=== PATIENT | male | born 1955 | race Caucasian/White ===

== ENCOUNTER 2016-08-29 23:21 | Emergency (ER) | payer MEDICARE, MEDICAID ==
[2016-08-29] MEDS ORDERED: HUMALOG PEN 100 U/ML SC ONE ×2 (23:45→23:47)
[2016-08-29 23:54] LABS: BASOPHILS % (AUTO) 1 % (0-3); EOSINOPHILS % (AUTO) 5 % (0-9); HEMATOCRIT 40 % (39-53); MEAN CORPUSCULAR HGB CONC 34.3 gm/dl (32.0-36.0); MONOCYTES % (AUTO) 6.5 % (0-12); NEUTROPHILS % (AUTO) 70.3 % (37-80)
[2016-08-29 23:57] LABS: APPEARANCE,URINE Clear; BILIRUBIN,URINE NEGATIVE (NEGATIVE); COLOR,URINE Light yellow; GLUCOSE, URINE (UA) 2+ (NEGATIVE); KETONES,URINE TRACE (NEGATIVE); LEUKOCYTE ESTERASE ,URINE NEGATIVE (NEGATIVE); MEAN CORPUSCULAR VOLUME 80 fL (80-100); NITRATE,URINE NEGATIVE (NEGATIVE); OCCULT BLOOD,URINE NEGATIVE (NEG-TRACE); UROBILINOGEN,URINE 0.2 (0.2-1.0 EU)
[2016-08-30 00:01] LABS: RBC,URINE 0-2 (0-3AV/HPF); WBC,URINE 0-2 (0-5AV/HPF)
[2016-08-30 00:06] VITALS: TEMP 98.1
[2016-08-30 00:08] LABS: CALCIUM 8.4 mg/dl (8.5-10.1); POTASSIUM 5.1 mMol/L (3.5-5.1)
[2016-08-30 00:33] VITALS: BP 114/46; PULSE 63; RESP 14; O2SAT 95
== END 2016-08-30 01:04 | disposition home or self-care (01) | DRG 639 ==
LOC: ED 23:21
DX: E11.65 Type 2 diabetes mellitus with hyperglycemia (principal); Z79.4 Long term (current) use of insulin
CPT/HCPCS: 36415; 80048; 81001; 82962; 85025; 99285; J1815

== ENCOUNTER 2016-10-21 11:07 | Emergency (ER) | payer MEDICARE, MEDICAID ==
[2016-10-21 11:22] VITALS: TEMP 97.1; O2SAT 100
[2016-10-21 11:59] LABS: BASOPHILS % (AUTO) 1 % (0-3); EOSINOPHILS % (AUTO) 2 % (0-9); HEMATOCRIT 39 % (39-53); MEAN CORPUSCULAR HGB CONC 36.5 gm/dl (32.0-36.0); MONOCYTES % (AUTO) 4.9 % (0-12); NEUTROPHILS % (AUTO) 80.6 % (37-80)
[2016-10-21 12:07] LABS: MEAN CORPUSCULAR VOLUME 80 fL (80-100)
[2016-10-21 12:08] LABS: CALCIUM 8.2 mg/dl (8.5-10.1); POTASSIUM 5.1 mMol/L (3.5-5.1)
[2016-10-21 12:09] LABS: APPEARANCE,URINE Clear; BILIRUBIN,URINE NEGATIVE (NEGATIVE); COLOR,URINE Yellow; GLUCOSE, URINE (UA) 2+ (NEGATIVE); KETONES,URINE NEGATIVE (NEGATIVE); LEUKOCYTE ESTERASE ,URINE NEGATIVE (NEGATIVE); NITRATE,URINE NEGATIVE (NEGATIVE); OCCULT BLOOD,URINE NEGATIVE (NEG-TRACE); UROBILINOGEN,URINE 0.2 (0.2-1.0 EU)
[2016-10-21] MEDS ORDERED: [UNRECOGNIZED DRUG - OTHER] MT ONE ×2 (12:10)
[2016-10-21 12:18] LABS: RBC,URINE NEG (0-3AV/HPF); WBC,URINE 0-1 (0-5AV/HPF)
[2016-10-21 12:30] VITALS: BP 137/66; PULSE 74; RESP 18
== END 2016-10-21 13:38 | disposition home or self-care (01) | DRG 153 ==
LOC: ED 11:07
DX: J02.9 Acute pharyngitis, unspecified (principal); B37.0 Candidal stomatitis; N39.43 Post-void dribbling
CPT/HCPCS: 36415; 80048; 81001; 85025; 87430; 99283

== ENCOUNTER 2017-02-21 21:50 | Emergency (ER) | payer MEDICARE, MEDICAID ==
[2017-02-21 22:03] VITALS: RESP 16; TEMP 98.7
[2017-02-21 22:28] VITALS: BP 142/59; PULSE 69; O2SAT 99
== END 2017-02-21 23:18 | disposition home or self-care (01) | DRG 639 ==
LOC: ED 21:50
DX: E10.8 Type 1 diabetes mellitus with unspecified complications (principal); Z79.4 Long term (current) use of insulin
CPT/HCPCS: 82962; 99282

== ENCOUNTER 2017-09-04 20:39 | Emergency (ER) | payer MEDICARE, MEDICAID ==
[2017-09-04 20:51] VITALS: RESP 20; TEMP 96.9
[2017-09-04 21:22] VITALS: BP 149/59; PULSE 59; O2SAT 98
== END 2017-09-04 21:26 | disposition home or self-care (01) | DRG 125 ==
LOC: ED 20:39
DX: H50.10 Unspecified exotropia (principal); E10.8 Type 1 diabetes mellitus with unspecified complications; F20.0 Paranoid schizophrenia; Z79.4 Long term (current) use of insulin
CPT/HCPCS: 99282

== ENCOUNTER 2018-02-25 18:51 | Emergency (ER) | payer MEDICARE, MEDICAID ==
[2018-02-25 19:51] VITALS: BP 166/71; PULSE 72; RESP 16; TEMP 96.6; O2SAT 100
[2018-02-25] MEDS ORDERED: MAGNESIUM CITRATE SOL PO PRN (19:54)
[2018-02-25] MEDS ORDERED: MAGNESIUM CITRATE SOL ONE (19:57)
== END 2018-02-25 20:29 | disposition home or self-care (01) | DRG 392 ==
LOC: ED 18:51
DX: K59.00 Constipation, unspecified (principal)
CPT/HCPCS: 99282; A9270-GY

== ENCOUNTER 2018-04-14 09:17 | Emergency (ER) | payer MEDICARE, MEDICAID ==
[2018-04-14] MEDS ORDERED: LIDOCAINE 2% W/ EPI MPF 20 ML SOL INFIL ONE (09:45)
[2018-04-14] MEDS ORDERED: LIDOCAINE 2% W/ EPI MPF 20 ML SOL ONE (09:48)
[2018-04-14 10:03] LABS: BASOPHILS % (AUTO) 1 % (0-3); EOSINOPHILS % (AUTO) 4 % (0-9); HEMATOCRIT 42 % (39-53); HEMOGLOBIN 13.5 gm/dl (13.5-17.7); LYMPHOCYTES % (AUTO) 8.7 % (10-50); MEAN CORPUSCULAR HEMOGLOBIN 26.7 pg (27.0-32.0); MEAN CORPUSCULAR HGB CONC 32.3 gm/dl (32.0-36.0); MEAN CORPUSCULAR VOLUME 83 fL (80-100); MONOCYTES % (AUTO) 5.1 % (0-12); NEUTROPHILS % (AUTO) 80.8 % (37-80)
[2018-04-14] MEDS ORDERED: SODIUM CHLORIDE 0.9% FLUSH 10 ML SOL IV PRN (10:04)
[2018-04-14] MEDS ORDERED: SODIUM CHLORIDE 0.9% 1000ML 1,000 ML IV ONE (10:08)
[2018-04-14 10:21] LABS: ALBUMIN 3.3 gm/dl (3.4-5.0); ALKALINE PHOSPHATASE 114 IU/L (46-116); ALT 22 IU/L (14-63); AST 13 IU/L (15-37); BILIRUBIN,TOTAL 0.5 mg/dl (0.2-1.0); BLOOD UREA NITROGEN 15 mg/dl (7-18); CALCIUM 8.4 mg/dl (8.5-10.1); CARBON DIOXIDE 27.3 mEq/L (21-32); CHLORIDE 104 mMol/L (98-107); CREATININE 0.84 mg/dl (0.80-1.30); GLUCOSE 157 mg/dl (74-106); POTASSIUM 4.2 mMol/L (3.5-5.1); SODIUM 138 mMol/L (136-145); THYROID STIMULATING HORMONE 2.929 uIU/ml (0.358-3.740); TOTAL PROTEIN 6.4 gm/dl (6.4-8.2)
[2018-04-14 10:23] LABS: ALCOHOL < 0.003 gm/dl (0.000-0.08)
[2018-04-14 10:55] VITALS: RESP 16
[2018-04-14 11:04] LABS: APPEARANCE,URINE Clear; BILIRUBIN,URINE NEGATIVE (NEGATIVE); COLOR,URINE Yellow; GLUCOSE, URINE (UA) NEGATIVE (NEGATIVE); KETONES,URINE NEGATIVE (NEGATIVE); LEUKOCYTE ESTERASE ,URINE NEGATIVE (NEGATIVE); NITRATE,URINE NEGATIVE (NEGATIVE); OCCULT BLOOD,URINE NEGATIVE (NEG-TRACE); UROBILINOGEN,URINE 0.2 (0.2-1.0 EU)
[2018-04-14] MEDS ORDERED: INSULIN GLARGINE, RECOMBINAN 100 U/ML SOL SC ONE ×2 (11:07→11:12)
[2018-04-14] MEDS ORDERED: HUMALOG PEN 100 U/ML SC ONE ×2 (11:07→11:12)
[2018-04-14 11:11] LABS: BACTERIA NEGATIVE (< 1+); CRYSTALS NEGATIVE (0-3 AVE/HPF); EPITHELIAL CELLS 0-1 (SQUAMOUS); RBC,URINE NEG (0-3AV/HPF); WBC,URINE NEG (0-5AV/HPF)
[2018-04-14 11:12] LABS: AMPHETAMINES NEGATIVE (NEGATIVE); BARBITUATES NEGATIVE (NEGATIVE); BENZODIAZEPINES NEGATIVE (NEGATIVE); CANNABINOL(THC) NEGATIVE (NEGATIVE); COCAINE(COC) NEGATIVE (NEGATIVE); METHADONE NEGATIVE (NEGATIVE); METHAMPHETAMINES NEGATIVE (NEGATIVE); OPIATES(OPI) NEGATIVE (NEGATIVE); OXYCODONE(OXY) NEGATIVE (NEGATIVE); PROPOXYPHENE(PPX) NEGATIVE (NEGATIVE); TRICYCLIC ANTIDEPRESSANTS NEGATIVE (NEGATIVE)
[2018-04-14] MEDS ORDERED: TDAP VACCINE 0.5 ML SUS IM ONE ×2 (12:40→12:42)
[2018-04-14 12:49] VITALS: BP 149/70; PULSE 75; TEMP 98.1; O2SAT 99
== END 2018-04-14 15:52 | disposition home or self-care (01) | DRG 914 ==
LOC: ED 09:17
DX: T14.91XA Suicide attempt, initial encounter (principal); F20.0 Paranoid schizophrenia; X78.1XXA Intentional self-harm by knife, initial encounter; E11.9 Type 2 diabetes mellitus without complications
CPT/HCPCS: 12005; 80053; 80305; 80307; 81001; 84443; 85025; 90471; 90715; 96365; 96372; 99285; G0168; J1815; J1817; A6402

== ENCOUNTER 2018-08-05 19:40 | Emergency (ER) | payer MEDICARE, MEDICAID ==
[2018-08-05] MEDS ORDERED: ALBUTEROL/IPRATROPIUM 1 VIAL SOL INH ONE (20:01)
[2018-08-05 20:02] VITALS: TEMP 97.8
[2018-08-05] MEDS ORDERED: ALBUTEROL/IPRATROPIUM 1 VIAL SOL ONE (20:02)
[2018-08-05 20:48] LABS: BASOPHILS % (AUTO) 1 % (0-3); EOSINOPHILS % (AUTO) 14 % (0-9); HEMATOCRIT 37 % (39-53); HEMOGLOBIN 12.7 gm/dl (13.5-17.7); LYMPHOCYTES % (AUTO) 18.2 % (10-50); MEAN CORPUSCULAR HEMOGLOBIN 27.5 pg (27.0-32.0); MEAN CORPUSCULAR HGB CONC 34.2 gm/dl (32.0-36.0); MONOCYTES % (AUTO) 6.8 % (0-12); NEUTROPHILS % (AUTO) 60.5 % (37-80)
[2018-08-05 20:55] LABS: MEAN CORPUSCULAR VOLUME 80 fL (80-100)
[2018-08-05 20:59] LABS: APPEARANCE,URINE Clear; BILIRUBIN,URINE NEGATIVE (NEGATIVE); COLOR,URINE Yellow; GLUCOSE, URINE (UA) NEGATIVE (NEGATIVE); KETONES,URINE NEGATIVE (NEGATIVE); LEUKOCYTE ESTERASE ,URINE TRACE (NEGATIVE); NITRATE,URINE NEGATIVE (NEGATIVE); OCCULT BLOOD,URINE 2+ (NEG-TRACE); UROBILINOGEN,URINE 0.2 (0.2-1.0 EU)
[2018-08-05 21:07] LABS: BLOOD UREA NITROGEN 17 mg/dl (7-18); CARBON DIOXIDE 27.4 mEq/L (21-32); CHLORIDE 105 mMol/L (98-107); CREATININE 0.79 mg/dl (0.80-1.30); GLUCOSE 171 mg/dl (74-106); POTASSIUM 4.1 mMol/L (3.5-5.1); SODIUM 140 mMol/L (136-145); TROP I < 0.017 ng/ml (0.000-0.056)
[2018-08-05 21:08] VITALS: PULSE 60; RESP 18
[2018-08-05 21:13] LABS: BACTERIA 1+ (< 1+); CRYSTALS NEGATIVE (0-3 AVE/HPF); EPITHELIAL CELLS 0-1 (SQUAMOUS); RBC,URINE 15-25 (0-3AV/HPF)
[2018-08-05] MEDS ORDERED: PREDNISONE 20 MG TAB PO ONE (21:19)
[2018-08-05] MEDS ORDERED: PREDNISONE 20 MG TAB ONE (21:23)
[2018-08-05 21:40] VITALS: BP 145/80; O2SAT 98
== END 2018-08-05 21:38 | disposition home or self-care (01) | DRG 204 ==
LOC: ED 19:40
DX: R06.02 Shortness of breath (principal); F20.0 Paranoid schizophrenia; R42 Dizziness and giddiness; E10.8 Type 1 diabetes mellitus with unspecified complications; Z79.4 Long term (current) use of insulin
CPT/HCPCS: 36415; 71046; 80048; 81001; 83880; 84484; 85025; 87088; 93005; 99284; A9270-GY

== ENCOUNTER 2018-12-18 15:56 | Emergency (ER) | payer MEDICARE, MEDICAID ==
[2018-12-18 16:27] VITALS: RESP 18; TEMP 98.1
[2018-12-18 16:43] LABS: BASOPHILS % (AUTO) 0 % (0-3); EOSINOPHILS % (AUTO) 4 % (0-9); HEMATOCRIT 40 % (39-53); HEMOGLOBIN 13.2 gm/dl (13.5-17.7); LYMPHOCYTES % (AUTO) 13.2 % (10-50); MEAN CORPUSCULAR HEMOGLOBIN 27.4 pg (27.0-32.0); MEAN CORPUSCULAR HGB CONC 32.7 gm/dl (32.0-36.0); MEAN CORPUSCULAR VOLUME 84 fL (80-100); MONOCYTES % (AUTO) 6.1 % (0-12); NEUTROPHILS % (AUTO) 76.2 % (37-80)
[2018-12-18 17:12] LABS: ALBUMIN 3.7 gm/dl (3.4-5.0); ALKALINE PHOSPHATASE 111 IU/L (46-116); ALT 22 IU/L (14-63); AST 16 IU/L (15-37); BILIRUBIN,TOTAL 0.2 mg/dl (0.2-1.0); BLOOD UREA NITROGEN 23 mg/dl (7-18); CALCIUM 8.5 mg/dl (8.5-10.1); CREATININE 1.23 mg/dl (0.80-1.30); GLUCOSE 60 mg/dl (74-106); SALICYLATE < 2.8 mg/dl (2.8-30.0); THYROID STIMULATING HORMONE 3.653 uIU/ml (0.358-3.740); TOTAL PROTEIN 7.2 gm/dl (6.4-8.2)
[2018-12-18 17:16] LABS: CARBON DIOXIDE 26.2 mEq/L (21-32); CHLORIDE 106 mMol/L (98-107)
[2018-12-18 17:20] LABS: ALCOHOL 0.004 gm/dl (0.000-0.08)
[2018-12-18 17:21] LABS: ACETAMINOPHEN < 2 ug/ml (10-30)
[2018-12-18 18:18] LABS: APPEARANCE,URINE Clear; BILIRUBIN,URINE NEGATIVE (NEGATIVE); COLOR,URINE Yellow; GLUCOSE, URINE (UA) NEGATIVE (NEGATIVE); KETONES,URINE TRACE (NEGATIVE); LEUKOCYTE ESTERASE ,URINE NEGATIVE (NEGATIVE); NITRATE,URINE NEGATIVE (NEGATIVE); OCCULT BLOOD,URINE NEGATIVE (NEG-TRACE); PH,URINE 5.5; UROBILINOGEN,URINE 0.2 (0.2-1.0 EU)
[2018-12-18 18:31] LABS: AMPHETAMINES NEGATIVE (NEGATIVE); BACTERIA TRACE (< 1+); BARBITUATES NEGATIVE (NEGATIVE); BENZODIAZEPINES NEGATIVE (NEGATIVE); CANNABINOL(THC) NEGATIVE (NEGATIVE); COCAINE(COC) NEGATIVE (NEGATIVE); CRYSTALS NEGATIVE (0-3 AVE/HPF); EPITHELIAL CELLS 0-2 (SQUAMOUS); METHAMPHETAMINES NEGATIVE (NEGATIVE); OPIATES(OPI) NEGATIVE (NEGATIVE); OXYCODONE(OXY) NEGATIVE (NEGATIVE); PROPOXYPHENE(PPX) NEGATIVE (NEGATIVE); RBC,URINE 0-1 (0-3AV/HPF); WBC,URINE 0-3 (0-5AV/HPF)
[2018-12-19 02:23] VITALS: BP 123/74; PULSE 84; O2SAT 97
== END 2018-12-19 00:23 | DRG 885 ==
LOC: ED 15:56
DX: F20.0 Paranoid schizophrenia (principal)
CPT/HCPCS: 36415; 80053; 80305; 80307; 81001; 84443; 85025; 99283; 99285